=== PATIENT | female | born 1960 | race Caucasian/White ===

== ENCOUNTER 2024-03-26 19:25 | Inpatient (IN) | payer BC ==
[2024-03-26 19:58] LABS: Hematocrit 48.9 % (36.0-47.0); Mean Corpuscular HGB CONC 32.7 g/dL (32.0-36.0); Mean Corpuscular Hemoglobin 30.7 pg (27.0-31.0); Mean Corpuscular Volume 93.9 fL (78.0-98.0); Mean Platelet Volume 10.9 fL (7.4-10.4); Platelet Count 172 10x3/uL (130-400); RBC Distribution Width 13.1 % (11.5-14.5); Red Blood Cell (RBC) Count 5.21 mill/uL (4.20-5.40)
[2024-03-26 20:13] LABS: ALT (SGPT) 17 U/L (8-55); AST (SGOT) 27 U/L (5-34); Albumin 3.8 g/dL (3.4-4.8); Alkaline Phosphatase 142 U/L (40-110); Anion Gap 15 mmol/L (10-20); BUN (Urea Nitrogen) 9 mg/dL (9.8-20.1); Bilirubin, Total 0.5 mg/dL (0.2-1.2); Calc. Creatinine Clearance 0 mL/min (70-130); Calcium 9.5 mg/dL (7.8-10.44); Carbon Dioxide 27 mmol/L (23-31); Chloride 100 mmol/L (98-107); Estimated GFR 83; Globulin 3.6 g/dL (2.4-3.5); Glucose 107 mg/dL (80-115); Potassium 3.2 mmol/L (3.5-5.1); Protein, Total 7.4 g/dL (5.8-8.1); Sodium 139 mmol/L (136-145)
[2024-03-26 20:18] LABS: Troponin I Less than 0.010 ng/mL (< 0.028)
[2024-03-26 20:22] LABS: Band 2 % (5-11); Eosinophils 4 % (0-10); Large Platelets 3.9 % (0-5); Lymphocytes 23 % (21-51); Monocytes 6 % (0-10); Neutrophil 53 % (42-75); Platelet Adequacy Comment Platelets Normal; RBC Morphology Within Normal Limits; Reactive Lymphocytes 13 % (0-10)
[2024-03-26] MEDS ORDERED: Azithromycin 500 MG VIAL ONE (22:38)
[2024-03-26] MEDS ORDERED: methylPREDNISolone Sod Succ/PF 125 MG/2 ML VIAL ONE (22:38)
[2024-03-26 22:41] LABS: Lactic Acid 1.18 mmol/L (0.5-2.2)
[2024-03-26] MEDS ORDERED: Azithromycin 250 MG TAB ONE (22:47)
[2024-03-26] MEDS ORDERED: Ipratropium/Albuterol 3 ML NEB ONE (22:48)
[2024-03-26] MEDS ORDERED: Ondansetron PF 4 MG/2 ML Vial IVP PRN (23:58)
[2024-03-26] MEDS ORDERED: Ondansetron ODT 4 MG TAB PO PRN (23:58)
[2024-03-26] MEDS ORDERED: Acetaminophen 650 MG Suppository PR PRN (23:58)
[2024-03-27] MEDS: Ipratropium/Albuterol 3 ML NEB NEB SCH ×2 (02:15→19:10)
[2024-03-27 02:39] VITALS: BMI 19.8
[2024-03-27 06:34] LABS: Hematocrit 43.6 % (36.0-47.0); Hemoglobin 14.6 g/dL (12.0-16.0); Mean Corpuscular HGB CONC 33.5 g/dL (32.0-36.0); Mean Corpuscular Hemoglobin 30.9 pg (27.0-31.0); Mean Corpuscular Volume 92.4 fL (78.0-98.0); Mean Platelet Volume 11.9 fL (7.4-10.4); Platelet Count 155 10x3/uL (130-400); RBC Distribution Width 13.1 % (11.5-14.5); Red Blood Cell (RBC) Count 4.72 mill/uL (4.20-5.40)
[2024-03-27 06:36] LABS: ALT (SGPT) 15 U/L (8-55); AST (SGOT) 23 U/L (5-34); Albumin 3.5 g/dL (3.4-4.8); Alkaline Phosphatase 125 U/L (40-110); Anion Gap 14 mmol/L (10-20); BUN (Urea Nitrogen) 9 mg/dL (9.8-20.1); Bilirubin, Total 0.4 mg/dL (0.2-1.2); Calc. Creatinine Clearance 60 mL/min (70-130); Calcium 9.2 mg/dL (7.8-10.44); Carbon Dioxide 26 mmol/L (23-31); Chloride 102 mmol/L (98-107); Estimated GFR 87; Globulin 3.3 g/dL (2.4-3.5); Glucose 164 mg/dL (80-115); Potassium 3.1 mmol/L (3.5-5.1); Protein, Total 6.8 g/dL (5.8-8.1); Sodium 139 mmol/L (136-145)
[2024-03-27] MEDS: Acetaminophen 325 MG TAB PO SCH (07:08)
[2024-03-27] MEDS: Mometasone 100 MCG/Formoterol 5 MCG 120 PUFF INHALER INH SCH (08:10)
[2024-03-27 08:14] LABS: Band 4 % (5-11); Lymphocytes 5 % (21-51); Neutrophil 90 % (42-75); Platelet Adequacy Comment Platelets Normal; RBC Morphology Within Normal Limits; Reactive Lymphocytes 1 % (0-10)
[2024-03-27] MEDS: methylPREDNISolone Sod Succ 40 MG VIAL IVP SCH (08:50)
[2024-03-27] MEDS: Doxycycline 100 MG CAP PO SCH (08:50)
[2024-03-27] MEDS: Famotidine 20 MG TAB PO SCH (08:50)
[2024-03-27] MEDS: Famotidine/PF 20 mg/2ml Vial SLOW IVP SCH (08:51)
[2024-03-27] MEDS ORDERED: Ipratropium/Albuterol 3 ML NEB NEB PRN (09:32)
[2024-03-27] MEDS ORDERED: Guaifenesin DM 100-10/5 ML UDCUP PO PRN (09:33)
[2024-03-27] MEDS ORDERED: Benzonatate 100 MG CAP PO PRN (09:33)
[2024-03-27] MEDS: Potassium Chloride 20 MEQ TAB PO SCH (10:32)
[2024-03-27] MEDS ORDERED: Phenol 177 ML BOT PO PRN (14:59)
[2024-03-27] MEDS ORDERED: Acetaminophen 325 MG TAB PO PRN (15:00)
[2024-03-27] MEDS: Potassium Bicarbonate/Cit Ac 20 MEQ TAB PO SCH (16:54)
[2024-03-27] MEDS: Benzocaine/Menthol 1 LOZ LOZ PO PRN (16:58)
[2024-03-27] MEDS ORDERED: Potassium Chloride 20 MEQ TAB PO SCH (17:00)
[2024-03-27] MEDS: Montelukast Sodium 10 mg Tablet PO SCH (21:10)
[2024-03-27] MEDS: guaiFENesin ER 600 MG TAB PO SCH (21:11)
[2024-03-28 06:34] LABS: #Basophils Less than 0.03 10x3/uL (0.0-0.2); #Eosinophils Less than 0.03 10x3/uL (0.0-0.7); %Basophils 0.1 % (0.0-1.0); %Lymphocytes 7.6 % (21.0-51.0); %Monocytes 4.1 % (0.0-10.0); %Neutrophils 87.7 % (42.0-75.0); Hematocrit 44.2 % (36.0-47.0); Hemoglobin 14.8 g/dL (12.0-16.0); Mean Corpuscular HGB CONC 33.5 g/dL (32.0-36.0); Mean Corpuscular Hemoglobin 30.8 pg (27.0-31.0); Mean Corpuscular Volume 91.9 fL (78.0-98.0); Mean Platelet Volume 11.5 fL (7.4-10.4); Platelet Count 187 10x3/uL (130-400); RBC Distribution Width 13.2 % (11.5-14.5); Red Blood Cell (RBC) Count 4.81 mill/uL (4.20-5.40)
[2024-03-28 06:55] LABS: Anion Gap 12 mmol/L (10-20); BUN (Urea Nitrogen) 16 mg/dL (9.8-20.1); Calc. Creatinine Clearance 57 mL/min (70-130); Calcium 9.3 mg/dL (7.8-10.44); Carbon Dioxide 27 mmol/L (23-31); Chloride 106 mmol/L (98-107); Estimated GFR 82; Glucose 140 mg/dL (80-115); Magnesium 2.3 mg/dL (1.6-2.6); Potassium 4.6 mmol/L (3.5-5.1); Sodium 140 mmol/L (136-145)
[2024-03-28] MEDS: Folic Acid 1 MG TAB PO SCH (08:26)
[2024-03-28] MEDS: guaiFENesin ER 600 MG TAB PO SCH (21:00)
[2024-03-29 01:23] VITALS: TEMP 97.4
[2024-03-29 07:57] VITALS: BP 143/76
[2024-03-30] MEDS ORDERED: FLU (Fluarix Triv) TS24-25(6MOS UP)/PF 45 MCG/0.5 ML Syringe IM ONE (09:00)
== END 2024-03-29 16:46 | disposition home or self-care (01) | DRG 189 ==
LOC: ERS 19:25 → T4-B 23:21 → OBSVTOIN 03-27 14:57
PROVIDERS: ADMIT Student in an Organized Health Care Education/Training Program; ATTEND Internal Medicine
DX: J96.01 Acute respiratory failure with hypoxia (principal); J44.1 Chronic obstructive pulmonary disease with (acute) exacerbation; L40.50 Arthropathic psoriasis, unspecified; E87.6 Hypokalemia; D72.819 Decreased white blood cell count, unspecified; Z87.891 Personal history of nicotine dependence; Z90.710 Acquired absence of both cervix and uterus; Z90.49 Acquired absence of other specified parts of digestive tract; Z88.0 Allergy status to penicillin
CPT/HCPCS: 36415; 71045; 80048; 80053; 83605; 83735; 83880; 84484; 85025; 93005; 94640; 94664; 96374; 96376; G0378; J0456; J2919; J7620

== ENCOUNTER 2024-04-15 00:43 | Emergency (ER) | payer BC ==
[2024-04-15 01:06] LABS: #Basophils 0.04 10x3/uL (0.0-0.2); %Basophils 0.4 % (0.0-1.0); %Lymphocytes 18.8 % (21.0-51.0); %Monocytes 8.2 % (0.0-10.0); %Neutrophils 71.4 % (42.0-75.0); Hemoglobin 15.3 g/dL (12.0-16.0); Mean Corpuscular HGB CONC 31.9 g/dL (32.0-36.0); Mean Corpuscular Hemoglobin 31.2 pg (27.0-31.0); Mean Corpuscular Volume 97.8 fL (78.0-98.0); Platelet Count 183 10x3/uL (130-400); RBC Distribution Width 14.1 % (11.5-14.5); Red Blood Cell (RBC) Count 4.91 mill/uL (4.20-5.40)
[2024-04-15 01:25] LABS: ALT (SGPT) 22 U/L (8-55); Albumin 3.5 g/dL (3.4-4.8); Alkaline Phosphatase 114 U/L (40-110); Anion Gap 12 mmol/L (10-20); BUN (Urea Nitrogen) 10 mg/dL (9.8-20.1); Bilirubin, Total 0.7 mg/dL (0.2-1.2); Calc. Creatinine Clearance 0 mL/min (70-130); Calcium 9.2 mg/dL (7.8-10.44); Carbon Dioxide 27 mmol/L (23-31); Chloride 106 mmol/L (98-107); Estimated GFR 79; Globulin 3.3 g/dL (2.4-3.5); Glucose 81 mg/dL (80-115); Potassium 3.9 mmol/L (3.5-5.1); Protein, Total 6.8 g/dL (5.8-8.1); Sodium 141 mmol/L (136-145)
[2024-04-15 01:29] LABS: Troponin I Less than 0.010 ng/mL (< 0.028)
[2024-04-15 02:36] LABS: AST (SGOT) 18 U/L (5-34)
== END 2024-04-15 04:06 | disposition home or self-care (01) ==
LOC: ERS 00:43
DX: R07.2 Precordial pain (principal); Z87.891 Personal history of nicotine dependence
CPT/HCPCS: 36415; 71045; 80053; 84484; 85025; 93005

== ENCOUNTER 2024-05-24 09:15 | Outpatient (CLI) | payer BC | END 2024-05-24 09:16 | disposition home or self-care (01) | LOC: RAD 09:15 | PROVIDERS: ATTEND Internal Medicine | DX: R06.00 Dyspnea, unspecified (principal); R91.8 Other nonspecific abnormal finding of lung field; J98.4 Other disorders of lung; M47.814 Spondylosis without myelopathy or radiculopathy, thoracic region; I70.0 Atherosclerosis of aorta | CPT/HCPCS: 71046 ==